=== PATIENT | male | born 1980 | race Hispanic/Latino ===

== ENCOUNTER 2018-04-04 23:14 | Emergency (ER) | payer SELFPAY | END 2018-04-05 00:20 | LOC: ERS 23:14 | DX: Z04.1 Encounter for examination and observation following transport accident (principal); V89.2XXA Person injured in unspecified motor-vehicle accident, traffic, initial encounter | CPT/HCPCS: 99283 ==

== ENCOUNTER 2018-04-04 23:23 | Outpatient (CLI) | payer SELFPAY | END 2018-04-04 23:24 | disposition home or self-care (01) | LOC: LAB 23:23 | PROVIDERS: ATTEND Pathology Anatomic Pathology & Clinical Pathology | DX: Z02.83 Encounter for blood-alcohol and blood-drug test (principal) | CPT/HCPCS: 36415 ==